=== PATIENT | male | born 1955 | race African-American/Black ===

== ENCOUNTER 2016-06-05 11:56 | Emergency (ER) | payer OTHER ==
[~2016-06-05] VITALS: Wt 75.0 kg
[~2016-06-05 11:56] MED LIST: DOCU-144 PO; HYDR-3498 PO; HYDR-762 PO; HYDR-902 PO
[2016-06-05] MEDS ORDERED: HYDROmorphONE 1 MG/ML SYG IM STA (13:38)
[2016-06-05] MEDS ORDERED: HYDR-902 PO (13:39)
--- NOTE | 2016-06-05 13:44 | ERD ---
ER Documentation Chief Complaint Date/Time DATE: 06/05/16 TIME: 13:41 Chief Complaint CHRONIC NECK AND BACK PAIN HPI 61-year-old male presents with a history of rheumatoid arthritis and chronic neck and back pain and history of spinal stenosis. He has had surgery on his neck and back and states that he has been told is inoperable for further surgery. He is scheduled to see a test clerk for further evaluation and management. He complains of severe pain in his neck and back. He denies any fevers, bowel or bladder incontinence, weakness. He has not seen a lead painter. he Is here with his daughter. I have seen them prior for similar complaints of pain control despite good diana outpatient follow-up with primary doctor according to the daughter. ROS All systems reviewed and are negative except as per history of present illness. Medications Home Meds Active Scripts Hydrocodone/Acetaminophen (Elida 10-325 Tablet) 1 Each Tablet, 1 TAB PO Q6H Y for PAIN, #18 TAB Prov:MATEO AUSTIN MD 06/05/16 Docusate Sodium* (Colace*) 100 Mg Capsule, 100 MG PO BID, #30 CAP Prov:LILLIAM PEREIRA PA-C 02/05/16 Hydrocodone/Acetaminophen (Elida 10-325 Tablet) 1 Each Tablet, 1 TAB PO Q6H Y for PAIN, #12 TAB Prov:LILLIAM PEREIRA PA-C 02/05/16 Hydrocodone Bit-Acetaminophen* (Elida*) 5-325 Mg Tab, 1 TAB PO Q6 Y for PAIN, # 20 TAB Prov:VALENTINA FOOTE 01/09/16 Hydrocodone Bit-Acetaminophen* (Elida*) 10-325 Mg Tablet, 1 TAB PO Q6 Y for PAIN , #24 TAB Prov:MATEO AUSTIN MD 12/08/15 Allergies Allergies: Coded Allergies: peanut (Verified Allergy, Mild, 02/11/16) aspirin (Verified Allergy, Unknown, 02/11/16) ibuprofen (Verified Allergy, Unknown, 02/11/16) PMhx/Soc History of Surgery: No Anesthesia Reaction: No Hx Neurological Disorder: No Hx Respiratory Disorders: Yes (COPD) Hx Cardiac Disorders: No Hx Psychiatric Problems: No Hx Miscellaneous Medical Probl: Yes (congenital spinal stenosis, lupus, diverticulitis) Hx Alcohol Use: No Hx Substance Use: No Hx Tobacco Use: Yes Physical Exam Vitals Vital Signs Date Time Temp Pulse Resp B/P Pulse Ox O2 Delivery O2 Flow Rate FiO2 06/05/16 12:01 97.3 92 17 125/85 100 Physical Exam Const: [] In a wheelchair uncomfortable due to pain. Head: Atraumatic Eyes: Normal Conjunctiva ENT: Normal External Ears, Nose and Mouth. Neck: Full range of motion..~ No meningismus. Healed surgical scars without erythema, warmth, there is generalized paraspinous cervical tenderness. Resp: Clear to auscultation bilaterally Cardio: Regular rate and rhythm, no murmurs Abd: Soft, non tender, non distended. Normal bowel sounds Skin: No petechiae or rashes Back: No midline or flank tenderness. Generalized tenderness in the paraspinous lumbar muscles. Ext: No cyanosis, or edema Neur: Awake and alert Psych: Normal Mood and Affect Results 24 hrs Current Medications Medications (Trade) Dose Ordered Sig/Jhonathan Route PRN Reason Start Time Stop Time Status Last Admin Dose Admin Hydromorphone HCl (Dilaudid) 1 mg ONCE STAT IM 06/05/16 13:38 06/05/16 13:39 DC 06/05/16 13:49 Procedures/MDM Patient presents with acute on chronic neck and back pain and a history of rheumatoid arthritis and spinal stenosis and degenerative disc disease. Daughter and patient appear to be compliant with outpatient recommendations. Appear to be making a good diana other to avoid the emergency department but his pain appears inadequately controlled. Patient will referred to local pain management doctors. He was given Dilaudid 1 mg IM for severe pain will give a short course of Elida until can follow-up with primary doctor and further specialty care. Patient shows no signs of epidural abscess, cauda equina syndrome, neurologic deficits, bacterial infection but was should return to the ER for new or worsening symptoms Departure Diagnosis: Primary Impression: Spinal stenosis Spinal region: unspecified Qualified Code: M48.00 - Spinal stenosis, unspecified spinal region Condition: Stable Patient Instructions: Back And Neck Pain, General Referrals: FIDEL WATKINS MD, ANTHONY Jr., MD CAM,DESHAUN Farris MD Additional Instructions: Recommend lead painter for ongoing treatment and further evaluation. Follow-up with primary doctor and rheumatology as scheduled. Return for fevers, new or worsening symptoms. MATEO AUSTIN MD Jun 05, 2016 13:44
== END 2016-06-05 14:10 | disposition home or self-care (01) ==
LOC: FTE 11:56
DX: M48.00 Spinal stenosis, site unspecified (principal); J44.9 Chronic obstructive pulmonary disease, unspecified; Z87.891 Personal history of nicotine dependence; Z91.010 Allergy to peanuts
CPT/HCPCS: 96372; J1170

== ENCOUNTER 2017-08-02 17:21 | Emergency (ER) | END 2017-08-02 19:30 | disposition left against medical advice (07) ==

== ENCOUNTER 2017-08-04 16:57 | Emergency (ER) | END 2017-08-04 22:18 | disposition home or self-care (01) ==